=== PATIENT | female | born 1980 | race Caucasian/White ===

== ENCOUNTER 2020-06-05 12:21 | Emergency (ER) | payer BC, SELFPAY ==
[2020-06-05 12:22] VITALS: BP 137/61; PULSE 67; RESP 14; TEMP 37.1; O2SAT 100; BMI 25.4
--- NOTE | 2020-06-05 14:16 | ED.HA ---
HPI - Headache General Chief Complaint: Headache Stated Complaint: migraine Time Seen by Provider: 06/05/20 13:45 History of Present Illness HPI Narrative: Patient complains of typical migraine similar to many prior migraines, she took her I am in tracks but it has not helped she took Motrin and Fioricet with no relief and comes to the ER, headache is gradual in onset , there is photophobia, there is nausea, there is no fever no injury no confusion no vision changes Related Data Allergies Allergy/AdvReac Type Severity Reaction Status Date / Time ciprofloxacin [CIPROFLOXACIN] Allergy Unknown UNKNOWN Verified 06/05/20 12:25 Iodinated Contrast Media Allergy Unknown UNK Verified 06/05/20 12:25 [CONTRAST, IV] prochlorperazine Allergy Unknown UNKNOWN Verified 06/05/20 12:25 [From COMPAZINE] CONTRAST DYE Allergy Unknown UNKNOWN Uncoded 12/15/19 19:00 Review of Systems Review of Systems: Positive for her typical migraine headache with photophobia and nausea Negatives are no fever no chills no dizziness no weakness no confusion no vision changes, no chest pain no shortness of breath no abdominal pain no vomiting no diarrhea no numbness or weakness Yes all other systems are reviewed and are negative PMFSH Past Medical History Source: nursing notes reviewed Medical History (Updated 06/05/20 @ 15:29 by YEN Gamboa) IUD (intrauterine device) in place Migraines Social History Social History Smoked in Last 30 Days: No Use of substances other than those prescribed or required for medical reasons: No Advance Directives: No Advance Directives Information Provided: No Physical Exam Vital Signs: Vital Signs: Last Vital Signs Temp 98.7 F 06/05/20 12:22 Pulse 67 06/05/20 12:22 Resp 14 06/05/20 12:22 BP 137/61 06/05/20 12:22 Pulse Ox 100 06/05/20 12:22 Body Mass Index 25.4 General appearance is no acute distress cooperative relaxed and O x3 The head is normocephalic atraumatic pupils equal round reactive to light extraocular motions intact Neck is supple Respiratory no distress abdomen soft nontender Extremities is full range of motion x4 Skin no rashes Neuro no focal deficits, no facial asymmetry, no unilateral weakness, motor is 5/5 x4, conversation and interaction and understanding are all normal, gait and balance are normal, cranial nerves 2-12 intact as tested, cerebellar is normal, sensation intact and symmetrical Course Course Course Narrative: Patient is treated with 4 of morphine Reglan and Benadryl and a L of fluids and feels much better and is discharged home She is advised all narcotic prescriptions should come from primary care physician or her neurologists and she understands that Discharge Plan Discharge Clinical Impression: Migraine Qualifiers: Migraine type: unspecified Status migrainosus presence: without status migrainosus Intractability: not intractable Qualified Code(s): G43.909 - Migraine, unspecified, not intractable, without status migrainosus Patient Disposition: Home, Self-Care Additional Instructions: Follow with primary doctor and neurologist Return any time if worse
[2020-06-05] MEDS: 0.9 % Sodium Chloride 1,000 ML 999 ML IVCONT (14:41)
[2020-06-05] MEDS: diphenhydrAMINE HCL 50 MG/ML VIAL IVPUSH (14:50)
[2020-06-05] MEDS: Morphine Sulfate 4 MG/ML CARTRIDGE IVPUSH (14:50)
[2020-06-05] MEDS: Metoclopramide HCl 10 MG/2 ML VIAL IVPUSH (14:55)
[2020-06-05 15:20] VITALS: BP 130/80; PULSE 65; RESP 14; O2SAT 100
== END 2020-06-05 15:49 | disposition home or self-care (01) ==
PROVIDERS: Emergency Provider Emergency Medicine Emergency Medical Services
DX: G43.909 Migraine, unspecified, not intractable, without status migrainosus (principal); Z79.899 Other long term (current) drug therapy
CPT/HCPCS: 96365; 96375; 99284; J1200; J2270; J2765